=== PATIENT | female | born 1930 | race Caucasian/White ===

== ENCOUNTER 2017-07-05 12:01 | Day surgery (SDC) | payer MEDICARE, OTHER ==
[~2017-07-05] VITALS: Ht 144.8 cm; Wt 58.2 kg
[~2017-07-05 12:01] MED LIST: ASPI325EC; CALCIUM 1,0001 EACH PO; CONEST1.25; FENO145 PO; Glucosamine &1 EACH PO; LEVFLO500 PO; LEVOFLOXAC500 MG/100 IV; MAGOXI400 PO; MECL12.5 PO; MECL25 PO; MELA3 PO; METR500 PO; MINO50; Metronidaz500 MG/100 IV; Multiple Vitam1 EAC1 PO; OLME20 PO; OMEP20ER; POTA8 PO; PROACE100 PO; Prilosec Otc20 MG PO; QUIN325; QUININE SULFAT324 MG PO; RANI150; RANI150 PO; ROPI2 PO; THYR60 PO; TIOT18; TRIHYD253B; TRIHYD253B PO; TRIHYD5075 PO; VIT1CAPS12 PO; Zofran Odt4 MG SL; [UNRECOGNIZED DRUG - OTHER]; [UNRECOGNIZED DRUG - REMARK]
== END 2017-07-05 15:04 | disposition home or self-care (01) ==
LOC: ORSCSDS 12:01
PROVIDERS: Podiatrist Foot & Ankle Surgery
PROC: 0QSN04Z Reposition Right Metatarsal with Internal Fixation Device, Open Approach (ICD-10-PCS; principal; 2017-07-05 13:30)
DX: M20.11 Hallux valgus (acquired), right foot (principal); I10 Essential (primary) hypertension; E03.9 Hypothyroidism, unspecified; Z79.899 Other long term (current) drug therapy
CPT/HCPCS: C1713; C1769; J0171; J1100; J2250; J2405; J3370; J7120

== ENCOUNTER → 2019-05-03 | Outpatient (CLI) | payer MEDICARE, OTHER | END | disposition home or self-care (01) | LOC: PLD 07:55 → LAB SHORT 07:55 | DX: D22.72 Melanocytic nevi of left lower limb, including hip (principal) | CPT/HCPCS: 88305 ==